=== PATIENT | female | born 1965 ===

== ENCOUNTER 2024-01-18 07:30 | Inpatient (IN) | payer OTHER ==
[~2024-01-18] VITALS: Ht 154.9 cm; Wt 97.5 kg
[~2024-01-18 07:30] MED LIST: BUSPIRONE HCL5 MG; CLIMARA1 PATCH.W1 TD; COZAAR100 MG; DUI500 PO; ELIQUIS2.5 MG PO; LYRICA100 MG; NABUMETONE500 MG PO; NEURONTIN300 MG PO; OMEPRAZOLE MAGN20 MG; PERCOCET 5-3251 EACH PO; PERCOCET 5/3251 TAB PO; PROTONIX40 MG PO; SINGULAIR10 MG PO; ZETIA10 MG; ZOLOFT50 MG
[2024-01-18 07:55] LABS: PH,URINE 7.5 (5.0-8.0); URINE APPEARANCE Clear; URINE BILIRRUBIN Negative (NEGATIVE); URINE BLOOD Negative; URINE COLOR Yellow; URINE GLUCOSE Negative (NEGATIVE); URINE KETONE Negative (NEGATIVE); URINE LEUKOCYTE Negative; URINE NITRATE Negative; URINE PROTEIN Negative (NEGATIVE)
[2024-01-18 08:00] LABS: URINE BACTERIA 57.9 uL (0.0-1933); URINE CAST 0.15 uL (0.0-1.40); URINE EPITHELIAL CELLS 6.9 uL (0.0-38.8); URINE RBC 29.4 uL (0.0-20.8); URINE WBC 8.8 uL (0.0-23.2)
[2024-01-18 08:01] LABS: HEMATOCRIT 35.6 % (36.0-45.00); HEMOGLOBIN 11.9 g/dL (12.0-15.00); MEAN CELL VOLUME 81.1 fL (80.00-100.00); MEAN CORPUSCULAR HEMOGLOBIN 27.2 pg (27.00-32.0); MEAN CORPUSCULAR HGB CONC 33.5 g/dl (32.0-36.0); PLATELET COUNT 252 K/uL (150-450); RED BLOOD COUNT 4.38 M/uL (4.00-6.00); RED CELL DISTRIBUTION WIDTH 16.8 % (11.5-14.5)
[2024-01-18 08:33] LABS: INR 1.01; PARTIAL THROMBOPLASTIN TIME 31.3 SECONDS (22.0-34.0)
[2024-01-18 09:09] LABS: ALBUMIN 4.2 gm/dL (3.4-5.0); BILIRUBIN TOTAL 0.52 mg/dL (0.3-1.2); CALCIUM 9.5 mg/dL (8.5-10.1); CHOL HDL RATIO 4.2 (0-5.0); CREATININE SERUM 0.45 mg/dL (0.55-1.02); GFR 142.12; GLOBULINA 3.2 G/DL (2.4-3.5); POTASSIUM 4.37 mEq/L (3.5-5.1); TOTAL PROTEIN 7.4 gm/dL (6.4-8.2)
[2024-01-18 09:44] LABS: RH POSITIVE
[2024-01-30] MEDS ORDERED: KETOROLAC TROMETHAMINE 60 MG VIAL IM ONE (13:30)
[2024-01-30] MEDS ORDERED: POVIDONE-IODINE 118 ML BOTT TOP ONE (13:30)
[2024-01-30] MEDS ORDERED: TRANEXAMIC ACID 100MG/1ML (1000MG) AMPUL IV ONE ×2 (13:30)
[2024-01-30] MEDS ORDERED: CEFAZOLIN SODIUM 1,000 MG VIAL IV ONE (13:30)
[2024-01-30] MEDS ORDERED: OxyCODONE HCL 5 MG TABLET (ROXICODONE) PO PRN (14:45)
[2024-01-30] MEDS ORDERED: MORPHINE SULFATE 4 MG/ML CARTRIDGE IV PRN (14:45)
[2024-01-30] MEDS ORDERED: SODIUM CHLORIDE 0.45 % 1,000 ML IV SCH (14:45)
[2024-01-30] MEDS ORDERED: ONDANSETRON HCL 2 MG/ML VIAL IV PRN (14:45)
[2024-01-30] MEDS ORDERED: CEFAZOLIN SODIUM 1,000 MG VIAL IV SCH (17:00)
[2024-01-30] MEDS ORDERED: GABAPENTIN 300 MG CAPSULE PO SCH (17:00)
[2024-01-30] MEDS ORDERED: MONTELUKAST SODIUM 10 MG TABLET PO SCH (17:00)
[2024-01-30] MEDS ORDERED: ACETAMINOPHEN 500 MG GEL..CAP PO SCH (18:00)
[2024-01-30] MEDS ORDERED: MEPERIDINE HCL 25 MG/ML AMPUL IV ONE (18:10)
[2024-01-30 21:00] VITALS: BP 149/67; O2SAT 99
[2024-01-31 00:57] VITALS: BP 101/59; O2SAT 97
[2024-01-31 06:50] LABS: HEMATOCRIT 31.4 % (36.0-45.00); HEMOGLOBIN 10.3 g/dL (12.0-15.00); MEAN CELL VOLUME 82.4 fL (80.00-100.00); MEAN CORPUSCULAR HGB CONC 32.7 g/dl (32.0-36.0); PLATELET COUNT 220 K/uL (150-450); RED BLOOD COUNT 3.81 M/uL (4.00-6.00); RED CELL DISTRIBUTION WIDTH 16.3 % (11.5-14.5)
[2024-01-31 08:00] VITALS: BP 114/72; O2SAT 99
[2024-01-31] MEDS ORDERED: APIXABAN 2.5 MG TABLET PO SCH (09:00)
[2024-01-31] MEDS ORDERED: SENNOSIDES 1 TAB TABLET PO SCH (09:00)
[2024-01-31] MEDS ORDERED: SERTRALINE HCL 50 MG TABLET PO SCH (09:00)
[2024-01-31] MEDS ORDERED: LOSARTAN POTASSIUM 100 MG TABLET PO SCH (09:00)
[2024-01-31] MEDS ORDERED: BUSPIRONE HCL 5 MG TABLET PO SCH (09:00)
[2024-01-31] MEDS ORDERED: PERCOCET 5-3251 EACH PO (09:03)
[2024-01-31] MEDS ORDERED: ELIQUIS2.5 MG PO (09:03)
[2024-01-31] MEDS ORDERED: CEFADROXIL500 MG PO (09:03)
[2024-01-31 16:09] VITALS: BP 95/62; O2SAT 98
[2024-02-01] VITALS: BP 114/71; O2SAT 97
[2024-02-01 06:16] LABS: HEMATOCRIT 28.7 % (36.0-45.00); MEAN CELL VOLUME 80.1 fL (80.00-100.00); MEAN CORPUSCULAR HEMOGLOBIN 27.9 pg (27.00-32.0); MEAN CORPUSCULAR HGB CONC 34.8 g/dl (32.0-36.0); PLATELET COUNT 208 K/uL (150-450); RED BLOOD COUNT 3.58 M/uL (4.00-6.00); RED CELL DISTRIBUTION WIDTH 15.9 % (11.5-14.5)
[2024-02-01] MEDS ORDERED: IRON FUM,PS/FOLIC ACID/VITC/B3 1 CAP CAPSULE PO SCH (09:00)
[2024-02-01 16:00] VITALS: BP 101/52; O2SAT 98
== END 2024-02-01 19:41 | DRG 470 ==
LOC: O/R 01-30 05:38 → SURH 01-30 07:30 → SURG 01-30 18:01
PROVIDERS: ADMIT Orthopaedic Surgery; ATTEND Orthopaedic Surgery
PROC: 0MNP0ZZ Release Left Knee Bursa and Ligament, Open Approach (ICD-10-PCS; 2024-01-30)
PROC: 0SRD0J9 Replacement of Left Knee Joint with Synthetic Substitute, Cemented, Open Approach (ICD-10-PCS; principal; 2024-01-30 13:00)
DX: M17.12 Unilateral primary osteoarthritis, left knee (principal); M22.12 Recurrent subluxation of patella, left knee